=== PATIENT | male | born 1955 | race Two or more races ===

== ENCOUNTER 2025-01-03 07:00 | Day surgery (SDC) | payer OTHER ==
[2025-01-03] MEDS ORDERED: MIDAZOLAM HCL 2 MG/2 ML VIAL IV ONE (15:45)
[2025-01-03] MEDS ORDERED: DIPHENHYDRAMINE HCL 50 MG/ML VIAL 1ML IV ONE (15:45)
[2025-01-03] MEDS ORDERED: fentaNYL CITRATE 50 MCG/ML AMPUL IV PUSH ONE (15:45)
[2025-01-03] MEDS ORDERED: hydrALAZINE HCL 20 MG VIAL ONE (16:38)
[2025-01-03] MEDS ORDERED: ENALAPRILAT DIHYDRATE 1.25 MG/ML VIAL IV ONE (18:00)
== END 2025-01-03 19:35 | disposition home or self-care (01) ==
LOC: CIR.AMB 07:00
PROVIDERS: ATTEND Internal Medicine
DX: D12.3 Benign neoplasm of transverse colon (principal); D12.4 Benign neoplasm of descending colon; D12.5 Benign neoplasm of sigmoid colon; K63.5 Polyp of colon; K57.30 Diverticulosis of large intestine without perforation or abscess without bleeding